=== PATIENT | female | born 1955 | race Caucasian/White ===

== ENCOUNTER 2017-04-02 19:18 | Emergency (ER) | payer MEDICARE ==
[~2017-04-02] VITALS: Ht 172.7 cm; Wt 90.1 kg
[2017-04-02 19:20] VITALS: BP 137/81
[2017-04-02] MEDS ORDERED: KLON0.5T PO (19:33)
[2017-04-02] MEDS ORDERED: CELE10TA PO (19:33)
[2017-04-02] MEDS ORDERED: ZYRT10CA PO (19:33)
[2017-04-02] MEDS ORDERED: GABA-283 PO (19:33)
[2017-04-02] MEDS ORDERED: NAPROXEN 250 MG TAB PO ONE (19:45)
[2017-04-02] MEDS ORDERED: ACET30TAB PO (20:37)
[2017-04-02] MEDS ORDERED: ACETAMINOPH W/CODEINE #3 TAB UD PO ONE (20:45)
--- NOTE | 2017-04-03 08:05 | REP ---
Right ribs and PA chest: Right ribs four views: There is no rib fracture or other rib abnormality. PA chest: Comparison is a 2012. There is no pneumothorax, hemothorax or pulmonary contusion. The lung black are clear. The cardiac size is normal The shira, mediastinum, and bony thorax are unremarkable. Impression: Negative PA chest. Signed by Earnest Casey MD 04/03/2017 07:57 A
== END 2017-04-02 20:58 | disposition home or self-care (01) ==
LOC: M ED 19:50
DX: S40.011A Contusion of right shoulder, initial encounter (principal); Y04.0XXA Assault by unarmed brawl or fight, initial encounter; Y92.099 Unspecified place in other non-institutional residence as the place of occurrence of the external cause; Y93.89 Activity, other specified; Y99.9 Unspecified external cause status

== ENCOUNTER → 2018-05-06 | Outpatient (REF) | payer MEDICARE ==
[2018-05-06 17:40] LABS: RHEUMATOID FACTOR QUANT < 10.0 IU/ML (<15.0)
[2018-05-06 18:31] LABS: ERYTHROCYTE SEDIMENTATION RATE 8 mm/hr (0-30)
[2018-05-11 11:03] LABS: PTT LUPUS TYPE ANTICOAG SCREEN 0.9 (0-1.2)
[2018-05-14 00:11] LABS: ANCA-ATYPICAL <1:20 titer (Neg:<1:20); ANTI THROMBIN 3 FUNCT ACTIVITY 96 % (75-135); ANTINUCLEAR ANTIBODIES DIRECT Negative (Negative); CARDIOLIPIN IGA ANTIBODY <9 APL U/mL (0-11); CARDIOLIPIN IGG ANTIBODY <9 GPL U/mL (0-14); CARDIOLIPIN IGM ANTIBODY 12 MPL U/mL (0-12); CYTOPLASMIC NEUTROP AB ANCA-C <1:20 titer (Neg:<1:20); FACTOR V 94 % (70-150); PERINUCLEAR AB ANCA-P <1:20 titer (Neg:<1:20); PROTEIN C FUNCTIONAL ACTIVITY 131 % (73-180); PROTEIN S FUNCTIONAL ACTIVITY 93 % (63-140)
== END ==
LOC: M LABNEURO 14:50
DX: G45.9 Transient cerebral ischemic attack, unspecified (principal)
CPT/HCPCS: 86147

== ENCOUNTER → 2019-03-17 | Outpatient (CLI) | payer MEDICARE ==
[~2019-03-17] MED LIST: ACET-716 PO; CELE10TA PO; GABA-845 PO; KLON0.5T PO; ZYRT10CA PO
== END ==
LOC: M OUTALCOH 08:05
PROVIDERS: ATTEND Psychiatry & Neurology Psychiatry
DX: Z03.89 Encounter for observation for other suspected diseases and conditions ruled out (principal)

== ENCOUNTER → 2021-07-31 | Outpatient (CLI) | payer MEDICARE ==
[~2021-07-31] MED LIST changes: +GABA-283 PO; -GABA-845 PO
== END ==
LOC: M LABSMTC 10:54
PROVIDERS: ATTEND Anesthesiology
DX: Z01.812 Encounter for preprocedural laboratory examination (principal); Z20.822 Contact with and (suspected) exposure to COVID-19

== ENCOUNTER 2021-08-05 08:22 | Day surgery (SDC) | payer MEDICARE ==
[~2021-08-05] VITALS: Ht 172.7 cm; Wt 86.2 kg
[~2021-08-05 08:22] MED LIST changes: +NS 1,000 ML IV ONE
--- OUTSIDE RECORDS SUMMARY | 2021-08-05 08:27 | CCD | Continuity of Care Document ---
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 4tabs Z12.11 Juan Luis Mcgovern MD 06/25/2021 Klonopin 0.5mg Tablets Daily for RLS Unknown Celexa 20mg Tablets Daily Unknown Claritin 10mg Tablets 1 by mouth every day Unknown History Medications Milk Of Magnesia 1200mg/15ML Suspe nsion take 45 milliliters by mouth as directed on colonoscopy prep sheet. Z12.11 Juan Luis Mcgovern MD 06/25/2021 - 06/25/2021 Immunizations Description No Information Available Vital Signs Date Vital Result Comment 06/25/2021 3:40pm BP Systolic 144 mmHg BP Diastolic 84 mmHg Height 68 inches 5'8" Weight 196.00 lb BMI (Body Mass Index) 29.8 kg/m2 [place] Body Weight 140 lb Weight 88.906 kg BSA (Body Surface Area) 2.03 m2 Results Description No Information Available Procedures Description No Information Available Medical Devices Description No Information Available Encounters Description No Information Available Assessments Date Code Description Provider 06/25/2021 Z12.11 Encounter for screening for leonel gnant neoplasm of colon Lorrie A GÉNESIS Dickson 06/25/2021 Z86.010 Personal history of colonic poly ps Lorrieleatha AaronGÉNESIS brumfield 06/25/2021 Z80.0 Family history of malignant neop lasm of digestive organs Lorrie Davey GÉNESIS Dickson Plan of Treatment 06/25/2021 - Lorrie Mariscal GÉNESIS Dickson* Z12.11 Encounter for screening for malignant neoplasm of colon * Z86.010 Personal history of colonic polyps * Z80.0 Family history of malignant neoplasm of digestive organs * * New Medication:* Miralax 17 GM/Scoop * Dulcolax 5 mg * Milk Of Magnesia 1200 mg/15ML * New Orders:* Colonoscopy, Ordered: 06/25/21 * Comments:* Will arrange for colonoscopy. Reviewed risks and benefits of the procedure, as well as other options, with the patient. Bowel prep procedure was discussed with patient, as well as risks and side effects associated with the bowel prep. Patient verbalized understanding of all of the above and is in agreement to proceed. Patient will seek medical attention for any acute changes. Will monitor. * Follow up:* As scheduled, sooner if needed. Functional Status Description No Information Available Mental Status Description No Information Available Referrals Refer to Reason for Referral Status Appt Date Schuyler Jenkins M.D. COLO SCREENING Created [facility] [address], [place] [address] [phone]
--- OUTSIDE RECORDS SUMMARY | 2021-08-05 08:27 | CCD | Continuity of Care Document ---
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 COLO SCREENING Created [facility] [address], [place] [address] [phone]
--- OUTSIDE RECORDS SUMMARY | 2021-08-05 08:28 | CCD ---
Author Author [facility] Organization [facility] Address Unknown Phone Unavailable Care Team Providers Care Intelligence Operations Specialist Name Role Phone ANDREW, J Louisa ANP Unavailable Unavailable ANDREW, J Oluisa ANP Unavailable Unavailable ANDREW, J Louisa ANP Unavailable Unavailable ANDREW, J Louisa ANP Unavailable Unavailable ANDREW, J Louisa ANP Unavailable Unavailable ANDREW, J Louisa ANP Unavailable Unavailable ANDREW, J Louisa ANP Unavailable Unavailable ANDREW, J Louisa ANP Unavailable Unavailable ANDREW, J Louisa ANP Unavailable Unavailable ANDREW, J Louisa ANP Unavailable Unavailable ANDREW, J Louisa ANP Unavailable Unavailable ANDREW, J Louisa ANP Unavailable Unavailable ANDREW, J Louisa ANP Unavailable Unavailable ANDREW, J Louisa ANP Unavailable Unavailable ANDREW, J Louisa ANP Unavailable Unavailable ANDREW, J Louisa ANP Unavailable Unavailable ANDREW, J Louisa ANP Unavailable Unavailable ANDREW, J Louisa ANP Unavailable Unavailable ANDREW, J Louisa ANP Unavailable Unavailable ANDREW, J Louisa ANP Unavailable Unavailable ANDREW, J Louisa ANP Unavailable Unavailable ANDREW, J Louisa ANP Unavailable Unavailable ANDREW, J Louisa ANP Unavailable Unavailable ANDREW, J Louisa ANP Unavailable Unavailable ANDREW, J Louisa ANP Unavailable Unavailable ANDREW, J Louisa ANP Unavailable Unavailable ANDREW, J Louisa ANP Unavailable Unavailable ANDREW, J Louisa ANP Unavailable Unavailable ANDREW, J Louisa ANP Unavailable Unavailable ANDREW, J Louisa ANP Unavailable Unavailable ANDREW, J Louisa ANP Unavailable Unavailable ANDREW, J Louisa ANP Unavailable Unavailable ANDREW, J Louisa ANP Unavailable Unavailable ANDREW, J Louisa ANP Unavailable Unavailable ANDREW, J Louisa ANP Unavailable Unavailable ANDREW, J Louisa ANP Unavailable Unavailable ANDREW, J Louisa ANP Unavailable Unavailable ANDREW, J Louisa ANP Unavailable Unavailable ANDREW, J Louisa ANP Unavailable Unavailable ANDREW, J Louisa ANP Unavailable Unavailable ANDREW, J Louisa ANP Unavailable Unavailable ANDREW, J Louisa ANP Unavailable Unavailable ANDREW, J Louisa ANP Unavailable Unavailable ANDREW, J Louisa ANP Unavailable Unavailable ANDREW, J Louisa ANP Unavailable Unavailable ANDREW, J Louisa ANP Unavailable Unavailable ANDREW, J Louisa ANP Unavailable Unavailable ANDREW, J Louisa ANP Unavailable Unavailable ANDREW, J Louisa ANP Unavailable Unavailable ANDREW, J Louisa ANP Unavailable Unavailable ANDREW, J Louisa ANP Unavailable Unavailable ANDREW, J Louisa ANP Unavailable Unavailable ANDREW, J Louisa ANP Unavailable Unavailable ANDREW, J Louisa ANP Unavailable Unavailable ANDREW, J Louisa ANP Unavailable Unavailable ANDREW, J Louisa ANP Unavailable Unavailable ANDREW, J Louisa ANP Unavailable Unavailable ANDREW, J Louisa ANP Unavailable Unavailable ANDREW, J Louisa ANP Unavailable Unavailable ANDREW, J Louisa ANP Unavailable Unavailable ANDREW, J Louisa ANP Unavailable Unavailable ANDREW, J Louisa ANP Unavailable Unavailable ANDREW, J Louisa ANP Unavailable Unavailable ANDREW, J Louisa ANP Unavailable Unavailable Re-disclosure Warning The records that you are about to access may contain information from federally-assisted alcohol or drug abuse programs. If such information is present, then the following federally mandated warning applies: This information has been disclosed to you from records protected by federal confidentiality rules (42 CFR part 2). The federal rules prohibit you from making any further disclosure of this information unless further disclosure is expressly permitted by the written consent of the person to whom it pertains or as otherwise permitted by 42 CFR part 2. A general authorization for the release of medical or other information is NOT sufficient for this purpose. The Federal rules restrict any use of the information to criminally investigate or prosecute any alcohol or drug abuse patient.The records that you are about to access may contain highly sensitive health information, the redisclosure of which is protected by Article 27-F of the [place] Public Health law. If you continue you may have access to information: Regarding HIV / AIDS; Provided by facilities licensed or operated by the [place] [employer] Office of Mental Health; or Provided by the [place] [employer] Office for People With Developmental Disabilities. If such information is present, then the following [employer] mandated warning applies: This information has been disclosed to you from confidential records which are protected by state law. State law prohibits you from making any further disclosure of this information without the specific written consent of the person to whom it pertains, or as otherwise permitted by law. Any unauthorized further disclosure in violation of state law may result in a fine or care home sentence or both. A general authorization for the release of medical or other information is NOT sufficient authorization for further disc losure. Family History Family Member Name Family Member Gender Family Member Status Date o f Status Description Data Source(s) Unknown Male Problem [facility] ([facility] () - kidney disease and colon c ancer and prostate cancer age 89 diabetes Encounters Encounter Providers Location Date Indications Data Source(s ) Outpatient Attender: Louisa Arthur 02:20:00 PM EDT [facility] ([facility] ) Office Visit Attender: Louisa Arthur 09:00:00 AM EST [facility] ([facility] ) Immunizations Vaccine Date Status Description Data Source(s) COVID-19 VACCINE Moderna 01/26/2021 12:00:00 AM EDT completed [facility] Vaccine Series Complete: YESThis Data wa s Submitted to [facility] Via [employer]. COVID-19 VACCINE Moderna 12/29/2020 12:00:00 AM EDT completed [facility] Vaccine Series Complete: NOThis Data was Submitted to [facility] Via [employer]. pneumococcal polysaccharide PPV23 10/09/2020 09:58:00 AM EST comple xu [facility] ([facility]) Medications Medication Brand Name Start Date Product Form Dose Route Admi nistrative Instructions Pharmacy Instructions Status Indications Reaction Description Data Source(s) Bisacodyl 5 MG Delayed Release Oral Tablet [Dulcolax] Dulcol ax 06/25/2021 12:00:00 AM EDT ORAL active M EDENT ([facility], ) POLYETHYLENE GLYCOL 3350 142 MG/ML Oral Solution [Miralax] M iralax 06/25/2021 12:00:00 AM EDT active M [facility] ([facility], ) Magnesium Hydroxide 80 MG/ML Oral Suspension Milk Of Magnesi a 06/25/2021 12:00:00 AM EDT ORAL completed [facility] ([facility], ) Loratadine 10 MG Oral Tablet Loratadine 10/01/2020 12:00:00 AM EST ORAL active [facility] ([facility]) Insurance Providers Payer name Policy type / Coverage type Policy ID Covered republican ID Covered republican's relationship to torres Policy [place] Plan Information [place] 302/307 [id number] SP [id number] [place] [place] 302/307 [id number] SP [id number] [place] 304/[id number] SP [id number] [place] 304/804 [id number] SP [id number] [place] 304/804 [id number] SP [id number] [place] 302/307 [id number] SP [id number] HMO BLUE [id number] SP [id number] MEDICAID [id number] SP [id number] [place] Tr[place]/MX Commercial [id number] Self [place] Trad/MX Medigap Part B [id number] Self [id number] [facility] MEDICARE COMPLETE G [id number] Self [id number] [facility] MEDICARE COMPLETE G [id number] Self [id number] MEDICARE [id number] SP [id number] A Medicare Natl Govt Servic Medicare Primary [id number] Self [id number] Medicare Natl Govt Servic Medicare Primary [id number] Self [id number] Medicare Natl Govt Servic Medicare Primary [id number] Self [id number] Medicare Natl Govt Servic Medicare Primary [id number] Self [id number] Medicare Natl Govt Servic Medicare Primary [id number] Self [id number] Medicare Natl Govt Servic Medicare Primary [id number] Self [id number] Medicare Natl Govt Servic Medicare Primary [id number] Self [id number] Medicare Natl Govt Servic Medicare Primary [id number] Self [facility] Opt Medigap Part B [id number] Self [id number] [facility] Opt Medigap Part B [id number] Self [id number] [facility] Opt Medigap Part B [id number] Self [facility] Opt Medigap Part B [id number] Self [id number] [facility] Opt Medigap Part B [id number] Self [id number] [facility] Opt Medigap Part B [id number] Self [id number] [facility] Healthcare Opt Medigap Part B [id number] Self [id number] [facility] Healthcare Opt Medigap Part B [id number] Self [id number] [facility] Commercial [id number] Self [id number] [facility] Medicare Opal Commercial [id number] Self [employer] Medicare Opal Commercial [id number] Self [id number] MEDICARE COMPLETE [id number] SP [id number] AARP S [id number] S [id number] MEDICARE P [id number] S [id number] A [facility]/Medicare Solu Commercial [id number] Self [id number] MEDICARE COMPLETE [id number] SP [id number] [employer] OPTIONS [id number] SP [id number] AARP S [id number] S [id number] MEDICARE [id number] SP [id number] A Medicaid Medigap Part B [id number] 25.0 Self [id number] Level [id number] Self [id number] SELF PAY UNAVAILABLE UNAVAILA BLE Medicaid Medigap Part B [id number] 25.0 Self [id number] Medicaid Medigap Part B [id number] 25.0 Self [id number] HMO BLUE [id number] SP [id number] [employer] [id number] SP [id number] MEDICARE COMPLETE-UHC O [id number] S [id number] Medicaid Medigap Part B [id number] 25.0 Self [id number] MEDICARE COMPLETE [id number] SP [id number] Medicaid Medigap Part B [id number] 25.0 Self [id number] MEDICARE COMPLETE-UHC O [id number] S [id number] Medicaid Medigap Part B [id number] 25.0 Self [id number] MEDICAID S [id number] S [id number] [facility] [id number] SP [id number] Medicaid Medigap Part B [id number] 25.0 Self [id number] Medicaid Medigap Part B [id number] Self [id number] Self Problems, Conditions, and Diagnoses No Information Surgeries/Procedures Procedure Description Date Indications Data Source(s) OFFICE OUTPATIENT VISIT 15 MINUTES 04/10/2021 12:00:00 AM JOON WALKER ([facility]) Mammogram 10/24/2020 12:00:00 AM CAROLYN Anton ABIBELEN ([facility]) Results ID Date Data Source [id number] 10/24/2020 12:00:00 AM CAROLYN [facility]ita Allen Patient Name:SERAFIN WELSH54[address] [facility] Date of : 1955[facility] Date of Exam:10/24/2020Jadechar MARCE [id number]#: [phone]: [phone] EXAM: MAMMO SCREENING WITH CADCLINICAL INFORMATION: Screening.Based on the personal and family history information your patient suppliedat the time of imaging, her lifetime risk of breast cancer estimated by theTyrer-Cuzick model is 15.6%. Given that this patient has less than 20% TCrisk score, no further medical management is currently recommended at thistime.Based on the personal and family history information your patient suppliedat the time of imaging, your patient meets the National ComprehensiveCancer Network testing criteria and elected to meet with our hereditarycancer specialist which may include genetic testing. Results are pending.This test result could increase or decrease your patient's breast cancerrisk estimate. Addendum to follow.Digital screening (2D) mammography was performed bilaterally in the CC andMLO projections. Additionally, breast tomosynthesis (3D mammography) wasperformed bilaterally in the CC and MLO projections. Today's exam wascompared to the prior exam(s).By history, the patient has no complaints of a palpable breast abnormalityor other significant breast complaints.The patient states last clinical breast exam was over a year ago.The breasts are unchanged in size and shape. There are no bari- soft tissuedensities or spiculated masses. There is no internal architecturaldistortion. There are no suspicious bari-calcific clusters. Skinthickening or nipple retraction is not present.The Volpara volumetric breast density category is B, there are scatteredareas of fibroglandular density.IMPRESSION:BI-RADS Category 1 - Negative Mammogram. Stable mammogram. There is noevidence of malignant alteration of the breasts. Followup examinationrecommended in one year.This mammogram was read with the assistance of [employer], an FDAapproved computer aided detection system for mammography.Negative x-ray reports should not delay surgical consultation if a dominantor clinically suspicious mass is present.Not all breast cancers can be identified by mammography. Therefore, werecommend that you continue to perform regular breast self-examination andphysical examination and then promptly contact your physician of anyconcerns or changes.Adenosis and dense breasts may obscure an underlying neoplasm.DEEDEE Lea/Devora you for referring SERAFIN WELSH to our office. Electronically Signed - RAVEN IRWIN DO 11/02/20 16:03 Name Value Range Interpretation Code Description Data Altagracia rce(s) Supporting Document(s) ID Date Data Source [id number] 10/10/2020 12:00:00 AM EST [facility] Lalita Allen Patient Name:SERAFIN WELSH54[address] Date of : 1955 [address] Date of Exam: 10/10/2020MARCE Matson [id number]#: Fax: [phone] EXAM: LUMBOSACRAL SPINE (4 VIEWS)CLINICAL INFORMATION: Patient has sustained a recent fall.Five views. These images were obtained using digital radiography.There are no prior lumbar spine xrays for comparison.Vertebral body height and alignment is within normal limits. There isanterior lipping at every level. There is posterior disc space narrowingat every level. Degenerative facet joint changes are seen at every levelbilaterally, particularly L4-5 and L5-S1. There is no evidence ofspondylolysis or spondylolisthesis.IMPRESSION:Chronic changes as described above.DEEDEE Lea/Devora you for referring SERAFIN WELSH to our office. Electronically Signed - RAVEN IRWIN DO 10/15/20 13:13 Name Value Range Interpretation Code Description Data Altagracia rce(s) Supporting Document(s) ID Date Data Source [id number] 10/10/2020 12:00:00 AM [facility] Imaging Lalita Allen Patient Name:SERAFIN WELSH54[address] [facility] Date of : 1955 [address] Date of Exam: 10/10/2020MARCE Matson [id number]#: Fax: [phone] EXAM: SHOULDER (COMPLETE-MINIMUM 2 VIEWS) LEFT X-RAYCLINICAL INFORMATION: Pain after trauma.Three views. These images were obtained using digital radiography.There are no prior left shoulder xrays for comparison.The glenohumeral and acromioclavicular joints are within normal limits.There is no acute fracture or destructive osseous lesion.DEEDEE Lea/Devora you for referring SERAFIN WELSH to our office. Electronically Signed - RAVEN IRWIN DO 10/15/20 13:13 Name Value Range Interpretation Code Description Data Altagracia rce(s) Supporting Document(s) ID Date Data Source [id number] 10/09/2020 11:03:00 AM EST [facility] ([facility]) Name Value Range Interpretation Code Description Data Altagracia rce(s) Supporting Document(s) Triglyceride [Mass/volume] in Serum or Plasma 104 mg/dL 30-150 [facility] ([facility]) Cholesterol [Mass/volume] in Serum or Plasma 187 mg/dL 131-200 [facility] ([facility]) Cholesterol in HDL [Mass/volume] in Serum or Plasma 55 mg/dL 35-60 [facility] ([facility]) Cholesterol in LDL [Mass/volume] in Serum or Plasma by calcu lation 111 CALC 50-159 [facility] ([facility]) ID Date Data Source [id number] 10/09/2020 11:03:00 AM EST [facility] ([facility]) Name Value Range Interpretation Code Description Data Altagracia rce(s) Supporting Document(s) Glucose [Mass/volume] in Serum or Plasma 113 mg/dL 74-99 [facility] ([facility]) 100-125 mg/dL PRE-DIABETES/FASTING >126 mg/dL DIABETES/FASTING Urea nitrogen [Mass/volume] in Serum or Plasma 20 mg/dL 7-18 [facility] ([facility]) Creatinine 0.7 mg/dL 0.6-1.3 [facility] Sodium [Moles/volume] in Serum or Plasma 139 meq/L 136-145 [facility] ([facility]) Potassium [Moles/volume] in Serum or Plasma 4.3 meq/L 3.5-5.1 [facility] ([facility]) Chloride [Moles/volume] in Serum or Plasma 104 meq/L 98-107 [facility] ([facility]) Carbon dioxide, total [Moles/volume] in Serum or Plasma 25 meq/L 21 -32 [facility] ([facility]) Total Bilirubin 1.4 mg/dL 0.2-1.0 [facility] ([facility]) Alkaline phosphatase isoenzyme [Units/volume] in Serum or Pl asma 70 mg/dL 46-116 [facility] ([facility]) Calcium [Mass/volume] in Serum or Plasma 8.8 mg/dL 8.5-10.1 [facility] ([facility]) Albumin [Mass/volume] in Serum or Plasma 4.0 g/dL 3.4-5.0 [facility] ([facility]) Aspartate aminotransferase [Enzymatic activity/volume] in Serum or Plasma 16 U/L 15-37 [facility] ([facility] ) Alanine aminotransferase [Enzymatic activity/volume] in Seru m or Plasma 30 U/L 12-78 [facility] ([facility]) Proteinase 3 Ab [Units/volume] in Serum 6.9 g/dL 6.4-8.2 [facility] ([facility]) A/G Ratio 1.38 CALC 1.00-1.90 [facility] ([facility]) Glomerular filtration rate/1.73 sq M pre dicted among non-blacks [Volume Rate/Area] in Serum or Plasma by Creatinine-based formula (MDRD) Laboratory test result [facility] Glomerular filtration rate/1.73 sq M pre dicted among blacks [Volume Rate/Area] in Serum or Plasma by Creatinine-based formula (MDRD) Laboratory test result [facility] <content>CHRONIC KIDNEY DISEASE STAGING PER NKF</content>
<content></content>
<content>STAGE I & II GFR >= 60 NORMAL TO MILDLY DECREASED</content>
<content>STAGE III GFR 30-59 MODERATELY DECREASED</content>
<content>STAGE IV GFR 15-29 SEVERELY DECREASED</content>
<content>STAGE V GFR <15 VERY LITTLE GFR LEFT</content>
<content>ESRD GFR <15 ON ERP SPECIALIST</content>
<content></content> ID Date Data Source [id number] 10/09/2020 11:03:00 AM EST [facility] ([facility]) Name Value Range Interpretation Code Description Data Altagracia rce(s) Supporting Document(s) Erythrocytes [#/volume] in Blood by Automated count 4.85 x10*6/UL 4.2 0-6.30 [facility] ([facility]) Leukocytes [#/volume] in Blood by Automated count 5.5 x10*3/UL 4.1-10 .9 [facility] ([facility]) Hemoglobin [Mass/volume] in Blood 15.1 g/dL 12.0-18.0 [facility] ([facility]) MCH 31.3 pg 26.0-32.0 [facility] Hematocrit [Volume Fraction] of Blood by Automated count 43.8 % 3 7.0-51.0 [facility] MCV 90.2 fL 80.0-97.0 [facility] MCHC 34.6 g/dL 31.0-38.0 [facility] ([facility]) Platelets [#/volume] in Blood by Automated count 239 x10*3/UL 140-440 [facility] Erythrocyte distribution width [Ratio] by Automated count 12.8 % 11.6-13.7 [facility] ([facility]) Mid % 6.0 % 1.7-9.3 [facility] MPV 8.3 FL 7.8-11.0 [facility] Lymph % 27.6 % 10.0-58.5 [facility] ([facility]) Lymph # 1.5 x10*3/UL 0.6-4.1 [facility] ([facility]) Mid # 0.3 x10*3/UL 0.1-0.6 [facility] ([facility]) Neut % 66.4 % 37.0-92.0 [facility] Neut # 3.7 x10*3/UL 2.0-7.8 [facility] ([facility]) Procedure Social History No Information Vital Signs ID Date Data Source UNK Name Value Range Interpretation Code Description Data Source(s) [place] body weight 140 [lb_av] 140 [facility]_av] [facility] Systolic blood pressure 144 mm[Hg] 144 mm[Hg] M [facility] ([facility]) Body mass index (BMI) [Ratio] 29.8 kg/m2 29.8 k g/m2 [facility] ([facility]) Body surface area Derived from formula 2.03 m2 2.03 m2 [facility] ([facility]) Diastolic blood pressure 84 mm[Hg] 84 mm[Hg] [facility] ([facility]) Body height 68 [in_i] 68 [in_i] [facility] ([facility]) 5'8" Body weight 196.00 [lb_av] 196.00 [lb_av] [facility] Body weight 88.906 kg 88.906 kg [facility] ([facility]) Heart rate 82 /min 82 /min [facility] ([facility]) Body height 68 [in_i] 68 [in_i] [facility] ([facility]) 5'8" Systolic blood pressure 134 mm[Hg] 134 mm[Hg] [facility] ([facility]) Diastolic blood pressure 60 mm[Hg] 60 mm[Hg] [facility] ([facility]) Body weight 191.00 [lb_av] 191.00 [lb_av] [facility] Oxygen saturation in Arterial blood by Pulse oximetry 96 % 96 % [facility] ([facility]) Body mass index (BMI) [Ratio] 29.0 kg/m2 29.0 k g/m2 [facility] ([facility]) Body mass index (BMI) [Ratio] 29.5 kg/m2 29.5 k g/m2 [facility] ([facility]) Systolic blood pressure 120 mm[Hg] 120 mm[Hg] [facility] ([facility]) ` Diastolic blood pressure 62 mm[Hg] 62 mm[Hg] [facility] ([facility]) ` Body height 68 [in_i] 68 [in_i] DENISE ([facility]) 5'8" Body weight 194.00 [lb_av] 194.00 [lb_av] CAREY Jolly ([facility])
--- OUTSIDE RECORDS SUMMARY | 2021-08-05 08:28 | CCD | Continuity of Care Document ---
Author Author Isabel DICKSON [facility] Organization Unknown Address [address], [address] [place] [address] Phone [phone] Care Team Providers Care Inspector Watch Train Name Role Phone Louisa Mckinley AUTM [phone] Problems Description No Active Problems Social History [...] lb BMI (Body Mass Index) 29.8 kg/m2 [place] Body Weight 140 lb Weight 88.906 kg [...] Date Schuyler Jenkins M.D. COLO SCREENING Created [facility] [address], [place] [address] [phone]
--- OUTSIDE RECORDS SUMMARY | 2021-08-05 08:28 | CCD | Continuity of Care Document ---
Author Author Isabel DICKSON [facility] Organization Unknown Address [address], [address] [place] [address] Phone [phone] Care Team Providers Care Integrity Manager Name Role Phone Louisa Mckinley AUTM [phone] Problems Description No Active Problems Social History [...] lb BMI (Body Mass Index) 29.8 kg/m2 [place] Body Weight 140 lb Weight 88.906 kg [...] Date Schuyler Jenkins M.D. COLO SCREENING Created [facility] [address], [place] [address] [phone]
[2021-08-05] MEDS ORDERED: LIDOCAINE 2% 100MG/5ML SDV (FOR ANES.) As Ordered ONE (08:42)
[2021-08-05] MEDS ORDERED: propofoL 200 MG/20 ML VIAL As Ordered ONE (08:42)
--- NOTE | 2021-08-05 10:57 | ROOR ---
Patient Name: Isabel Sims Procedure Date: 08/05/2021 10:09 AM Date of : 1955 Age: 66 Room: [facility] Gender: Female Note Status: Finalized Procedure: Colonoscopy Indications: High risk colon cancer surveillance: Personal history of colonic polyps Providers: Schuylre Jenkins MD Referring MD: Louisa Mckinley NP Requesting Provider: Medicines: Monitored Anesthesia Care Complications: No immediate complications. Procedure: Pre-Anesthesia Assessment: - Prior to the procedure, a History and Physical was performed, and patient medications and allergies were reviewed. The patient is competent. The risks and benefits of the procedure and the sedation options and risks were discussed with the patient. All questions were answered and informed consent was obtained. Patient identification and proposed procedure were verified by the physician, the nurse and the anesthesiologist in the procedure room. Mental Status Examination: alert and oriented. Airway Examination: normal oropharyngeal airway and neck mobility. Respiratory Examination: clear to auscultation. CV Examination: normal. Prophylactic Antibiotics: The patient does not require prophylactic antibiotics. Prior Anticoagulants: The patient has taken no previous anticoagulant or antiplatelet agents. ASA Grade Assessment: II - A patient with mild systemic disease. After reviewing the risks and benefits, the patient was deemed in satisfactory condition to undergo the procedure. The anesthesia plan was to use monitored anesthesia care (MAC). Immediately prior to administration of medications, the patient was re-assessed for adequacy to receive sedatives. The heart rate, respiratory rate, oxygen saturations, blood pressure, adequacy of pulmonary ventilation, and response to care were monitored throughout the procedure. The physical status of the patient was re-assessed after the procedure. The Colonoscope was introduced through the anus and advanced to the terminal ileum, with identification of the appendiceal orifice and IC valve. The colonoscopy was performed without difficulty. The patient tolerated the procedure well. The quality of the bowel preparation was good. The terminal ileum, ileocecal valve, appendiceal orifice, and rectum were photographed. Scope insertion time was 2 minutes. Scope withdrawal time was 10 minutes. The total duration of the procedure was 14 minutes. Findings: The perianal and digital rectal examinations were normal. The terminal ileum appeared normal. Six sessile polyps were found in the transverse colon, ascending colon and cecum. The polyps were 5 to 8 mm in size. These polyps were removed with a cold snare. Resection and retrieval were complete. Verification of patient identification for the specimen was done by the physician and nurse using the patient's name, date and medical record number. Estimated blood loss was minimal. Multiple small-mouthed diverticula were found from sigmoid to transverse colon. There was no evidence of diverticular bleeding. Non-bleeding external and internal hemorrhoids were found during retroflexion. The hemorrhoids were medium-sized. Impression: - The examined portion of the ileum was normal. - Six 5 to 8 mm polyps in the transverse colon, in the ascending colon and in the cecum, removed with a cold snare. Resected and retrieved. - Moderate diverticulosis from sigmoid to transverse colon. There was no evidence of diverticular bleeding. - Non-bleeding external and internal hemorrhoids. Recommendation: - Patient has a contact number available for emergencies. The signs and symptoms of potential delayed complications were discussed with the patient. Return to normal activities tomorrow. Written discharge instructions were provided to the patient. - High fiber diet. - Continue present medications. - Use fiber, for example Citrucel, Fibercon, Konsyl or Metamucil. - Await pathology results. - Repeat colonoscopy in 5 years for surveillance. - Telephone GI clinic for pathology results in 2 weeks. - Return to GI clinic if persistent symptoms or new symptoms. - Return to primary care physician. Procedure Code(s): --- Professional --- 42373, Colonoscopy, flexible; with removal of tumor(s), polyp(s), or other lesion(s) by snare technique Diagnosis Code(s): --- Professional --- Z86.010, Personal history of colonic polyps K64.8, Other hemorrhoids K63.5, Polyp of colon K57.30, Diverticulosis of large intestine without perforation or abscess without bleeding CPT copyright 2019 [employer] [place] [employer]. All rights reserved. The codes documented in this report are preliminary and upon manager hospice review may be revised to meet current compliance requirements. Schuyler Jenkins MD Schuyler Jenkins MD 08/05/2021 10:56:59 AM Electronically signed by Schuyler Jenkins MD Number of Addenda: 0 Note Initiated On: 08/05/2021 10:09 AM Estimated Blood Loss: Estimated blood loss was minimal.
[2021-08-05 11:00] VITALS: BP 157/90
== END 2021-08-05 11:15 | disposition home or self-care (01) ==
LOC: M OPP 08:22
PROVIDERS: ATTEND Internal Medicine Gastroenterology
DX: Z12.11 Encounter for screening for malignant neoplasm of colon (principal); Z86.010 Personal history of colon polyps; Z80.0 Family history of malignant neoplasm of digestive organs; K63.5 Polyp of colon; K57.30 Diverticulosis of large intestine without perforation or abscess without bleeding; K64.8 Other hemorrhoids; Z79.891 Long term (current) use of opiate analgesic; Z80.42 Family history of malignant neoplasm of prostate; Z80.3 Family history of malignant neoplasm of breast

== ENCOUNTER → 2022-07-10 | Outpatient (CLI) | payer MEDICARE ==
[~2022-07-10] MED LIST changes: -NS 1,000 ML IV ONE
== END ==
LOC: M WHC 14:37
PROVIDERS: ATTEND Nurse Practitioner Adult Health
DX: Z12.31 Encounter for screening mammogram for malignant neoplasm of breast (principal); M85.89 Other specified disorders of bone density and structure, multiple sites

== ENCOUNTER 2022-08-02 09:57 | Emergency (ER) | payer MEDICARE ==
[~2022-08-02] VITALS: Ht 172.7 cm; Wt 94.9 kg
[2022-08-02] MEDS ORDERED: LORA-674 PO (10:23)
[2022-08-02] MEDS ORDERED: PREG75CA2 (10:23)
[2022-08-02 10:54] LABS: BASO # 0.1 10^3/uL (0.0-0.2); BASO % 0.8 % (0.0-1.0); EOS # 0.2 10^3/uL (0.0-0.5); EOS % 2.4 % (0.0-3.0); HEMATOCRIT 44.5 % (36.0-47.0); HEMOGLOBIN 14.9 g/dl (12.0-15.5); LYMPH # 1.3 10^3/uL (1.5-5.0); LYMPH % 17.9 % (24.0-44.0); MEAN CORPUSCULAR HEMOGLOBIN 32.1 pg (27.0-33.0); MEAN CORPUSCULAR HGB CONC 33.5 g/dl (32.0-36.5); MEAN CORPUSCULAR VOLUME 95.9 fl (80.0-96.0); MONO # 0.4 10^3/uL (0.0-0.8); MONO % 5.2 % (2.0-8.0); NEUTROPHILS # 5.5 10^3/uL (1.5-8.5); PLATELET COUNT, AUTOMATED 210 10^3/uL (150-450); RED BLOOD COUNT 4.64 10^6/uL (4.00-5.40); WHITE BLOOD COUNT 7.5 10^3/uL (4.0-10.0)
[2022-08-02 11:26] LABS: CK-MB VALUE MASS 2.2 NG/ML (<3.6); MB/CK RELATIVE INDEX 1.86 (< OR =4)
[2022-08-02 11:27] LABS: RSV AMPLIFICATION NEGATIVE (NEGATIVE)
[2022-08-02 11:30] VITALS: BP 130/79
[2022-08-02 11:33] LABS: ALBUMIN 3.9 GM/DL (3.2-5.2); ALT/SGPT 55 U/L (12-78); BILIRUBIN,DIRECT 0.3 MG/DL (0.0-0.2); BILIRUBIN,TOTAL 1.1 MG/DL (0.2-1.0); BLOOD UREA NITROGEN 15 MG/DL (7-18); CALCIUM LEVEL 8.8 MG/DL (8.8-10.2); CARBON DIOXIDE LEVEL 25 MEQ/L (21-32); CHLORIDE LEVEL 109 MEQ/L (98-107); CREATININE FOR GFR 0.68 MG/DL (0.55-1.30); FREE T4 0.74 NG/DL (0.76-1.46); GLOMERULAR FILTRATION RATE > 60.0 (>45); GLUCOSE, FASTING 117 MG/DL (70-100); LIPASE 133 U/L (73-393); NT-PRO BNP 38 PG/ML (<125); POTASSIUM SERUM 4.3 MEQ/L (3.5-5.1); SODIUM LEVEL 139 MEQ/L (136-145)
[2022-08-02] MEDS ORDERED: ISOVUE-370 76% 100ML VIAL As Ordered ONE (11:38)
[2022-08-02 12:35] LABS: MB/CK RELATIVE INDEX 1.92 (< OR =4)
[2022-08-02 14:12] LABS: CK-MB VALUE MASS 1.8 NG/ML (<3.6); MB/CK RELATIVE INDEX 1.67 (< OR =4)
[2022-08-02] MEDS ORDERED: IBUPROFEN 600MG TAB PO ONE (14:25)
[2022-08-02] MEDS ORDERED: ACETAMINOPHEN TAB 650MG DOSE (2X325MG) PO ONE (14:25)
== END 2022-08-02 15:04 | disposition home or self-care (01) ==
LOC: M ED 09:57
DX: R07.9 Chest pain, unspecified (principal); M25.511 Pain in right shoulder; K76.0 Fatty (change of) liver, not elsewhere classified; R16.2 Hepatomegaly with splenomegaly, not elsewhere classified; Z79.899 Other long term (current) drug therapy
CPT/HCPCS: 71045; 71275; 74177; 80048; 80076; 82550; 82553; 83690; 83880; 84439; 84443; 84484; 85025; 87631; 93005; 93041; 94760; 99285; Q9967

== ENCOUNTER 2023-03-30 14:01 | Emergency (ER) | payer MEDICARE ==
[~2023-03-30] VITALS: Ht 172.7 cm; Wt 92.4 kg
[~2023-03-30 14:01] MED LIST changes: +LORA-674 PO; +PREG75CA2 PO
[2023-03-30 18:10] LABS: BASO # 0.1 10^3/uL (0.0-0.2); BASO % 1.5 % (0.0-1.0); EOS # 0.1 10^3/uL (0.0-0.5); EOS % 2.5 % (0.0-3.0); HEMATOCRIT 45.8 % (36.0-47.0); HEMOGLOBIN 15.2 g/dl (12.0-15.5); LYMPH # 1.7 10^3/uL (1.5-5.0); LYMPH % 31.3 % (24.0-44.0); MEAN CORPUSCULAR HEMOGLOBIN 31.9 pg (27.0-33.0); MEAN CORPUSCULAR HGB CONC 33.2 g/dl (32.0-36.5); MEAN CORPUSCULAR VOLUME 96.2 fl (80.0-96.0); MONO # 0.3 10^3/uL (0.0-0.8); NEUTROPHILS # 3.1 10^3/uL (1.5-8.5); NEUTROPHILS % 58.3 % (36.0-66.0); PLATELET COUNT, AUTOMATED 202 10^3/uL (150-450); RED BLOOD COUNT 4.76 10^6/uL (4.00-5.40); WHITE BLOOD COUNT 5.3 10^3/uL (4.0-10.0)
[2023-03-30 18:44] LABS: BLOOD UREA NITROGEN 11 MG/DL (9-23); CALCIUM LEVEL 8.8 MG/DL (8.3-10.6); CARBON DIOXIDE LEVEL 29 MMOL/L (20-31); CHLORIDE LEVEL 105 MMOL/L (98-107); CPK CREATINE PHOSPHOKINASE 60 U/L (34-145); CREATININE FOR GFR 0.71 MG/DL (0.55-1.30); GLOMERULAR FILTRATION RATE > 60.0 (>45); GLUCOSE, FASTING 94 MG/DL (74-106); SODIUM LEVEL 141 MMOL/L (136-145)
[2023-03-30 18:48] LABS: CK-MB VALUE MASS < 1.0 NG/ML (<3.6); MB/CK RELATIVE INDEX 1.66 (< OR =4)
[2023-03-30 19:24] VITALS: BP 128/85; TEMP 98.5; O2SAT 99
== END 2023-03-30 19:26 | disposition home or self-care (01) ==
LOC: M ED 14:01
DX: R22.42 Localized swelling, mass and lump, left lower limb (principal); G47.30 Sleep apnea, unspecified; F17.200 Nicotine dependence, unspecified, uncomplicated; Z79.899 Other long term (current) drug therapy

== ENCOUNTER 2023-04-02 00:02 | Emergency (ER) | payer MEDICARE ==
[~2023-04-02] VITALS: Ht 160 cm; Wt 92.4 kg
[2023-04-02] MEDS ORDERED: ONDANSETRON 4MG 2ML VIAL IV ONE (02:05)
[2023-04-02] MEDS ORDERED: MORPHINE 4 MG/ML 1ML VIAL IV ONE (02:05)
[2023-04-02 02:28] VITALS: TEMP 98.8
[2023-04-02 03:05] LABS: BLOOD UREA NITROGEN 14 MG/DL (9-23); CALCIUM LEVEL 7.7 MG/DL (8.3-10.6); CARBON DIOXIDE LEVEL 20 MMOL/L (20-31); CHLORIDE LEVEL 106 MMOL/L (98-107); CREATININE FOR GFR 0.61 MG/DL (0.55-1.30); GLOMERULAR FILTRATION RATE > 60.0 (>45); GLUCOSE, FASTING 117 MG/DL (74-106); POTASSIUM SERUM 3.4 MMOL/L (3.5-5.1); SODIUM LEVEL 137 MMOL/L (136-145)
[2023-04-02] MEDS ORDERED: fentaNYL 100 MCG/2 ML INJECTION IV ONE ×2 (03:10→04:30)
[2023-04-02 03:14] LABS: RSV AMPLIFICATION NEGATIVE (NEGATIVE)
[2023-04-02 03:43] LABS: BASO # 0.1 10^3/uL (0.0-0.2); BASO % 0.6 % (0.0-1.0); EOS % 0.4 % (0.0-3.0); HEMOGLOBIN 13.3 g/dl (12.0-15.5); MEAN CORPUSCULAR HEMOGLOBIN 32.3 pg (27.0-33.0); MEAN CORPUSCULAR HGB CONC 34.1 g/dl (32.0-36.5); MEAN CORPUSCULAR VOLUME 94.7 fl (80.0-96.0); MONO # 0.4 10^3/uL (0.0-0.8); MONO % 4.4 % (2.0-8.0); NEUTROPHILS # 6.8 10^3/uL (1.5-8.5); PLATELET COUNT, AUTOMATED 197 10^3/uL (150-450); RED BLOOD COUNT 4.12 10^6/uL (4.00-5.40); WHITE BLOOD COUNT 8.3 10^3/uL (4.0-10.0)
[2023-04-02] MEDS ORDERED: MIDAZOLAM INJ 2MG/2ML VIAL IV ONE (04:30)
[2023-04-02] MEDS ORDERED: HYDR-3713 PO (05:07)
[2023-04-02] MEDS ORDERED: NORCO, ANEXSIA 5/325MG TABLET (HYDROcodone/ACETAMINOPHEN) PO ONE (05:15)
[2023-04-02 06:11] VITALS: BP 154/80; O2SAT 99
[2023-04-03] MEDS ORDERED: CITA20TA6 PO (09:12)
[2023-04-03] MEDS ORDERED: OXYC-517 PO (12:09)
== END 2023-04-02 06:23 | disposition home or self-care (01) ==
LOC: M ED 00:02
DX: S82.851A Displaced trimalleolar fracture of right lower leg, initial encounter for closed fracture (principal); W01.0XXA Fall on same level from slipping, tripping and stumbling without subsequent striking against object, initial encounter; Y92.410 Unspecified street and highway as the place of occurrence of the external cause; Y93.01 Activity, walking, marching and hiking; Y99.8 Other external cause status; M79.7 Fibromyalgia; F32.A Depression, unspecified; Z79.899 Other long term (current) drug therapy

== ENCOUNTER 2023-04-02 10:25 | Observation (INO) | payer MEDICARE ==
[~2023-04-02 10:25] MED LIST changes: +HYDR-3713 PO
[2023-04-02] MEDS ORDERED: ONDANSETRON 4MG TAB PO PRN (15:05)
[2023-04-02] MEDS ORDERED: MORPHINE 2 MG/ML 1ML VIAL IV PRN (15:05)
[2023-04-02 15:45] VITALS: BP 141/78; TEMP 98.6; O2SAT 95
[2023-04-02 16:21] LABS: BASO # 0.1 10^3/uL (0.0-0.2); BASO % 0.7 % (0.0-1.0); EOS # 0.1 10^3/uL (0.0-0.5); EOS % 0.8 % (0.0-3.0); HEMATOCRIT 40.5 % (36.0-47.0); HEMOGLOBIN 13.9 g/dl (12.0-15.5); LYMPH # 1.6 10^3/uL (1.5-5.0); LYMPH % 20.3 % (24.0-44.0); MEAN CORPUSCULAR HEMOGLOBIN 32.2 pg (27.0-33.0); MEAN CORPUSCULAR HGB CONC 34.3 g/dl (32.0-36.5); MEAN CORPUSCULAR VOLUME 93.8 fl (80.0-96.0); MONO # 0.5 10^3/uL (0.0-0.8); MONO % 6.9 % (2.0-8.0); NEUTROPHILS # 5.4 10^3/uL (1.5-8.5); PLATELET COUNT, AUTOMATED 206 10^3/uL (150-450); RED BLOOD COUNT 4.32 10^6/uL (4.00-5.40); WHITE BLOOD COUNT 7.6 10^3/uL (4.0-10.0)
[2023-04-02 16:32] LABS: INR 0.99; PROTHROMBIN TIME 13.3 SECONDS (12.5-14.5)
[2023-04-02 16:33] LABS: BLOOD UREA NITROGEN 12 MG/DL (9-23); CALCIUM LEVEL 8.7 MG/DL (8.3-10.6); CARBON DIOXIDE LEVEL 25 MMOL/L (20-31); CHLORIDE LEVEL 106 MMOL/L (98-107); CREATININE FOR GFR 0.67 MG/DL (0.55-1.30); GLOMERULAR FILTRATION RATE > 60.0 (>45); GLUCOSE, FASTING 111 MG/DL (74-106); POTASSIUM SERUM 3.9 MMOL/L (3.5-5.1); SODIUM LEVEL 138 MMOL/L (136-145)
[2023-04-02] MEDS: ACETAMINOPHEN TAB 650MG DOSE (2X325MG) PO PRN (16:36)
[2023-04-02] MEDS: oxyCODONE 5MG TAB PO PRN (16:36)
[2023-04-02 20:11] VITALS: BP 168/88; TEMP 97.5
[2023-04-02] MEDS: DOCUSATE SODIUM 100MG CAPSULE PO SCH (20:13)
[2023-04-03] MEDS: LR 1,000 ML IV SCH ×2 (00:08→08:17)
[2023-04-03] MEDS: ACETAMINOPHEN TAB 650MG DOSE (2X325MG) PO PRN (00:09)
[2023-04-03] MEDS: oxyCODONE 5MG TAB PO PRN ×3 (00:10→18:26)
[2023-04-03 06:01] VITALS: BP 125/73; TEMP 97.3; O2SAT 96
[2023-04-03] MEDS: DOCUSATE SODIUM 100MG CAPSULE PO SCH (08:17)
[2023-04-03] MEDS ORDERED: PANTOPRAZOLE 40MG VIAL IV SCH (09:00)
[2023-04-03] MEDS ORDERED: CITA20TA6 PO (09:12)
[2023-04-03] MEDS ORDERED: HOME MED LIST COMPLETE! XX SCH (09:15)
[2023-04-03] MEDS ORDERED: MIDAZOLAM INJ 2MG/2ML VIAL As Ordered ONE (10:23)
[2023-04-03] MEDS ORDERED: propofoL 200 MG/20 ML VIAL As Ordered ONE (10:23)
[2023-04-03] MEDS ORDERED: fentaNYL 100 MCG/2 ML INJECTION As Ordered ONE (10:23)
[2023-04-03] MEDS ORDERED: KETOROLAC 60MG 2ML VIAL As Ordered ONE (10:23)
[2023-04-03] MEDS ORDERED: LIDOCAINE 2% 100MG/5ML SDV (FOR ANES.) As Ordered ONE (10:23)
[2023-04-03] MEDS ORDERED: ONDANSETRON 4MG 2ML VIAL As Ordered ONE (10:23)
[2023-04-03] MEDS ORDERED: ceFAZolin 1GM VIAL As Ordered ONE (10:39)
[2023-04-03] MEDS ORDERED: LR 1,000 ML IV SCH (11:55)
[2023-04-03] MEDS ORDERED: ONDANSETRON 4MG 2ML VIAL IV PRN (11:55)
[2023-04-03] MEDS ORDERED: oxyCODONE 5MG TAB PO PRN (11:55)
[2023-04-03] MEDS ORDERED: fentaNYL 100 MCG/2 ML INJECTION IV PRN (11:55)
[2023-04-03] MEDS: HYDROMORPHONE HCL 0.5 MG/ 0.5 ML SYRINGE IV PRN ×2 (12:04→12:11)
[2023-04-03] MEDS ORDERED: OXYC-517 PO (12:09)
[2023-04-03] MEDS ORDERED: METOCLOPRAMIDE INJ 10MG/2ML VIAL IV PRN (12:30)
[2023-04-03 13:40] VITALS: BP 133/64; TEMP 97.2; O2SAT 96
[2023-04-03 14:10] VITALS: BP 155/79; TEMP 97.3; O2SAT 96
[2023-04-03 15:10] VITALS: BP 142/77; TEMP 97.3; O2SAT 93
[2023-04-03 16:10] VITALS: BP 142/71; TEMP 97.3; O2SAT 94
[2023-04-03] MEDS ORDERED: ceFAZolin SOD 2 GM in IV 1 EA IV SCH (22:00)
== END 2023-04-03 18:45 | disposition home or self-care (01) ==
LOC: M MS5PR 15:34 → INTOOBSV 15:34 → UNDODISOB 04-03 14:50
PROVIDERS: ADMIT Orthopaedic Surgery; ATTEND Orthopaedic Surgery
DX: S82.851A Displaced trimalleolar fracture of right lower leg, initial encounter for closed fracture (principal); S93.01XA Subluxation of right ankle joint, initial encounter; X58.XXXA Exposure to other specified factors, initial encounter; Y92.89 Other specified places as the place of occurrence of the external cause; F41.9 Anxiety disorder, unspecified; F32.A Depression, unspecified; J30.2 Other seasonal allergic rhinitis; M79.7 Fibromyalgia; M19.90 Unspecified osteoarthritis, unspecified site; Z79.899 Other long term (current) drug therapy; R22.42 Localized swelling, mass and lump, left lower limb; G47.30 Sleep apnea, unspecified; F17.200 Nicotine dependence, unspecified, uncomplicated
CPT/HCPCS: 27818; 27822; 36415; 71045; 73610; 73630; 76000; 80048; 85025; 85610; 85730; 87631; 87635; 93005; 93041; 94760; 96374; 96375; 97161; 97165; 97530; 99152; 99285; C1713; C9113; G0378; J0690; J1100; J1170; J1885; J2250; J2405; J3010

== ENCOUNTER → 2023-04-15 | Outpatient (CLI) | payer MEDICARE ==
[~2023-04-15] MED LIST changes: +CITA20TA6 PO; +OXYC-517 PO
== END ==
LOC: M SOG 08:54
PROVIDERS: ATTEND Orthopaedic Surgery
DX: M25.571 Pain in right ankle and joints of right foot (principal)

== ENCOUNTER → 2023-05-13 | Outpatient (CLI) | payer MEDICARE ==
[~2023-05-13] MED LIST changes: -GABA-283 PO; +GABA-284 PO
== END ==
LOC: M SOG 09:43
PROVIDERS: ATTEND Orthopaedic Surgery
DX: S82.851A Displaced trimalleolar fracture of right lower leg, initial encounter for closed fracture (principal); Y93.9 Activity, unspecified; Y92.9 Unspecified place or not applicable

== ENCOUNTER → 2023-06-24 | Outpatient (CLI) | payer MEDICARE ==
[~2023-06-24] MED LIST changes: +LORA-1041 PO; -LORA-674 PO; -PREG75CA2 PO; +PREG75CA3 PO
== END ==
LOC: M SOG 08:04
PROVIDERS: ATTEND Orthopaedic Surgery
DX: S82.851D Displaced trimalleolar fracture of right lower leg, subsequent encounter for closed fracture with routine healing (principal)

== ENCOUNTER → 2023-07-29 | Outpatient (CLI) | payer MEDICARE | LOC: M SOG 08:55 | PROVIDERS: ATTEND Orthopaedic Surgery | DX: S82.851D Displaced trimalleolar fracture of right lower leg, subsequent encounter for closed fracture with routine healing (principal); W18.30XD Fall on same level, unspecified, subsequent encounter; Y92.009 Unspecified place in unspecified non-institutional (private) residence as the place of occurrence of the external cause ==

== ENCOUNTER → 2023-08-14 | Outpatient (CLI) | payer MEDICARE | LOC: M WHC 08:47 | PROVIDERS: ATTEND Nurse Practitioner Adult Health | DX: Z12.31 Encounter for screening mammogram for malignant neoplasm of breast (principal) ==

== ENCOUNTER → 2023-10-23 | Outpatient (CLI) | payer MEDICARE | LOC: M SOG 08:00 | PROVIDERS: ATTEND Orthopaedic Surgery | DX: S82.851D Displaced trimalleolar fracture of right lower leg, subsequent encounter for closed fracture with routine healing (principal); Y93.9 Activity, unspecified; Y92.9 Unspecified place or not applicable ==

== ENCOUNTER → 2024-03-14 | Outpatient (CLI) | payer MEDICARE ==
[~2024-03-14] MED LIST changes: -KLON0.5T PO; +KLON0.5T8 PO
== END ==
LOC: M SOG 07:51
PROVIDERS: ATTEND Orthopaedic Surgery
DX: S82.851D Displaced trimalleolar fracture of right lower leg, subsequent encounter for closed fracture with routine healing (principal)

== ENCOUNTER → 2024-11-29 | Outpatient (CLI) | payer MEDICARE | LOC: M WHC 09:04 | PROVIDERS: ATTEND Nurse Practitioner Adult Health | DX: Z12.31 Encounter for screening mammogram for malignant neoplasm of breast (principal); M85.89 Other specified disorders of bone density and structure, multiple sites; R92.323 Mammographic fibroglandular density, bilateral breasts ==

== ENCOUNTER → 2025-02-23 | Outpatient (REF) | payer MEDICARE ==
[2025-02-23 19:23] LABS: HEPATITIS B SURFACE ANTIGEN NEGATIVE (NEGATIVE)
[2025-02-23 19:43] LABS: HEPATITIS C VIRUS ABY INDEX 0.03 INDEX (<0.8)
[2025-02-23 19:44] LABS: HEPATITIS B CORE ANTIBODY IGM NEGATIVE (NEGATIVE)
== END ==
LOC: M LAB REF 17:43
PROVIDERS: ATTEND Nurse Practitioner Adult Health
DX: Z01.89 Encounter for other specified special examinations (principal); M79.7 Fibromyalgia

== ENCOUNTER → 2025-09-06 | Outpatient (CLI) | payer MEDICARE | LOC: M PLAIMG 10:37 | PROVIDERS: ATTEND Nurse Practitioner Adult Health | DX: R05.3 Chronic cough (principal); R16.1 Splenomegaly, not elsewhere classified; R16.0 Hepatomegaly, not elsewhere classified ==